=== PATIENT | female | born 1955 | race African-American/Black ===

== ENCOUNTER 2018-06-29 17:05 | Emergency (ER) | payer OTHER ==
[2018-06-29 17:41] LABS: #Eosinphils 0.1 thou/uL (0.0-0.7); #Lymphocytes 1.3 thou/uL (1.20-3.40); #Monocytes 0.5 thou/uL (0.11-0.59); #Neutrophils 5.1 thou/uL (1.40-6.50); %Basophils 0.7 % (0.0-1.0); %Eosinophils 1.6 % (0.0-10.0); %Lymphocytes 18.7 % (21.0-51.0); %Monocytes 7.2 % (0.0-10.0); %Neutrophils 71.8 % (42.0-75.0); Hemoglobin 10.3 g/dL (12.0-16.0); Mean Corpuscular HGB CONC 31.5 g/dL (32.0-36.0); Mean Corpuscular Hemoglobin 25.4 pg (27.0-31.0); Mean Corpuscular Volume 80.7 fL (78.0-98.0); Mean Platelet Volume 8.7 fL (7.4-10.4); Platelet Count 255 thou/uL (130-400); RBC Distribution Width 13.6 % (11.5-14.5); Red Blood Cell (RBC) Count 4.07 mill/uL (4.20-5.40); White Blood Cell (WBC) Count 7.1 thou/uL (4.8-10.8)
[2018-06-29] MEDS ORDERED: Loperamide HCl 2 MG CAP ONE (18:00)
[2018-06-29 18:06] LABS: ALT (SGPT) 10 U/L (8-55); AST (SGOT) 14 U/L (5-34); Albumin 3.6 g/dL (3.5-5.0); Alkaline Phosphatase 84 U/L (40-150); Anion Gap 12 mmol/L (10-20); BUN (Urea Nitrogen) 12 mg/dL (9.8-20.1); Bilirubin, Total 0.5 mg/dL (0.2-1.2); Calc. Creatinine Clearance 0 mL/min (70-130); Carbon Dioxide 23 mmol/L (22-29); Chloride 106 mmol/L (98-107); Estimated GFR-MDRD 89; Globulin 3.6 g/dL (2.4-3.5); Glucose 109 mg/dL (70-105); Magnesium 1.7 mg/dL (1.6-2.6); Protein, Total 7.2 g/dL (6.0-8.3); Sodium 137 mmol/L (136-145)
[2018-06-29 18:08] LABS: Bilirubin Negative (Negative); Blood, Urine Large (Negative); Clarity CLEAR (Clear); Glucose, Urine (Dipstick) Negative (Negative); Leukocyte Moderate (Negative); Nitrite Positive (Negative); Protein, Urine (Dipstick) Negative (Neg-Trace); Specific Gravity, Urine 1.009 (1.002-1.036); Urobilinogen 0.2 mg/dL (0.2-1.0)
[2018-06-29 18:10] LABS: Bacteria/HPF 1+ HPF (None Seen); Hyaline Casts/LPF 0-3 HYALINE CAST LPF (0-3 Hyaline); RBC/HPF 21-50 HPF (0-3); Squamous Epithelial 0-3 HPF (0-3)
== END 2018-06-29 19:31 | disposition home or self-care (01) ==
LOC: ERS 17:05
DX: N39.0 Urinary tract infection, site not specified (principal); R19.7 Diarrhea, unspecified; I10 Essential (primary) hypertension; Z86.73 Personal history of transient ischemic attack (TIA), and cerebral infarction without residual deficits; Z79.899 Other long term (current) drug therapy
CPT/HCPCS: 36415; 80053; 81003; 81015; 83735; 84484; 85025; 93005; 96360

== ENCOUNTER 2018-07-26 08:34 | Day surgery (SDC) | payer MEDICARE, MEDICAID ==
[2018-07-25 16:30] VITALS: BMI 40.6
[2018-07-26 09:07] LABS: #Basophils 0.1 thou/uL (0.0-0.2); #Eosinphils 0.3 thou/uL (0.0-0.7); #Lymphocytes 2.7 thou/uL (1.20-3.40); #Monocytes 0.4 thou/uL (0.11-0.59); #Neutrophils 4.4 thou/uL (1.40-6.50); %Basophils 1.1 % (0.0-1.0); %Lymphocytes 34.1 % (21.0-51.0); %Monocytes 4.8 % (0.0-10.0); Hemoglobin 10.1 g/dL (12.0-16.0); Mean Corpuscular HGB CONC 29.9 g/dL (32.0-36.0); Mean Corpuscular Hemoglobin 24.1 pg (27.0-31.0); Mean Corpuscular Volume 80.4 fL (78.0-98.0); Mean Platelet Volume 8.5 fL (7.4-10.4); Platelet Count 277 thou/uL (130-400); RBC Distribution Width 13.9 % (11.5-14.5); Red Blood Cell (RBC) Count 4.21 mill/uL (4.20-5.40); White Blood Cell (WBC) Count 7.9 thou/uL (4.8-10.8)
[2018-07-26 09:22] LABS: Hypochromia SLIGHT = 6-15 cells (100X) (0-5/hpf); MDiff Complete? YES; Platelet Morphology Comment Appears Adequate; Polychromasia SLIGHT = 2-3 cells (100X) (0-2/hpf)
[2018-07-26 09:25] LABS: Anion Gap 11 mmol/L (10-20); BUN (Urea Nitrogen) 14 mg/dL (9.8-20.1); Calc. Creatinine Clearance 124 mL/min (70-130); Calcium 9.6 mg/dL (7.8-10.44); Carbon Dioxide 25 mmol/L (22-29); Chloride 107 mmol/L (98-107); Estimated GFR-MDRD 80; Glucose 100 mg/dL (70-105); Potassium 3.9 mmol/L (3.5-5.1); Sodium 139 mmol/L (136-145)
[2018-07-26] MEDS ORDERED: Bacitracin Zinc Ointment 30 gm TUBE ONE (09:37)
[2018-07-26] MEDS ORDERED: Bupivacaine/Epinephrine 0.25% 30 ML VIAL ONE (09:37)
[2018-07-26] MEDS ORDERED: Fentanyl 100 MCG/2 ML VIAL ONE ×2 (09:39→11:44)
[2018-07-26] MEDS ORDERED: Lidocaine 2% Jelly 5 ML TUBE ONE (09:39)
[2018-07-26] MEDS ORDERED: Ondansetron PF 4 MG/2 ML Vial ONE (15:34)
[2018-07-26] MEDS ORDERED: Rocuronium Bromide 10 MG/ML (10ML VIAL) ONE (15:34)
[2018-07-26] MEDS ORDERED: Lidocaine 1% PF 5 ML VIAL ONE (15:34)
[2018-07-26] MEDS ORDERED: PROPOFOL 200 MG/20 ML VIAL ONE (15:34)
[2018-07-26] MEDS ORDERED: ePHEDrine 50 MG/ML VIAL ONE (15:34)
[2018-07-26] MEDS ORDERED: Glycopyrrolate 0.2 MG/ML 5 ML SYRINGE ONE (15:34)
--- NOTE | 2018-07-26 16:21 | PDOC.OP ---
Operative Note - Operative Note Operative Note: PROCEDURE: Excision of left posterior shoulder lipoma SURGEON: Linda Scherer M.D. DATE: 07/26/2018 PREOPERATIVE DIAGNOSIS: Left posterior shoulder lipoma POSTOPERATIVE DIAGNOSIS: Left posterior shoulder lipoma HISTORY: Patient with large left posterior shoulder lipoma which has been slowly growing over many years time. She has decided to have this removed for symptomatic and diagnostic purposes. PROCEDURE IN DETAIL: After informed consent was obtained and appropriate preoperative antibiotics administered patient was taken to the operating on she was placed in supine position and general anesthesia was administered she was then placed in the right lateral decubitus position with appropriate padding and support of the extremities and the left shoulder and back were prepped and draped in standard sterile fashion. Local anesthesia was infused circumferentially for a field block and a transverse incision was made over the lipoma in the long axis. Dissection was carried down to the well-defined lobulated lipoma which was dissected free circumferentially. This extended from the dermis to the underlying muscle and measured 10 x 13 x 4 cm in size. The mass was marked for orientation and the wound irrigated and hemostasis verified. A LETICIA drain was placed and brought out inferolaterally to the wound and secured to the skin. The subcutaneous tissues were reapproximated with 3-0 Monocryl suture and the skin was closed with a running 4-0 subcuticular Monocryl suture. Dermabond was placed to the incision and the LETICIA site was dressed with gauze and Tegaderm. The patient was moved to the supine position and extubated. Estimated blood loss was minimal. There were no complications. Specimen is left posterior shoulder lipoma.
--- NOTE | 2018-07-28 14:07 | EKG ---
Test Reason : PREOP Blood Pressure : / mmHG Vent. Rate : 055 BPM Atrial Rate : 055 BPM P-R Int : 174 ms QRS Dur : 080 ms QT Int : 432 ms P-R-T Axes : 058 040 046 degrees QTc Int : 413 ms Sinus bradycardia Otherwise normal ECG When compared with ECG of 29-JUN-2018 17:22, T wave amplitude has increased in Anterior leads Confirmed by NORMAN HERRING ([id number]) on 07/28/2018 2:07:05 PM Referred By: [email or web address] Confirmed By:NORMAN HERRING
== END 2018-07-26 13:18 | disposition home or self-care (01) ==
LOC: SDC 08:34
PROVIDERS: ATTEND Surgery
PROC: 0KB60ZZ Excision of Left Shoulder Muscle, Open Approach (ICD-10-PCS; principal; 2018-07-26)
DX: D17.79 Benign lipomatous neoplasm of other sites (principal); I10 Essential (primary) hypertension; Z86.73 Personal history of transient ischemic attack (TIA), and cerebral infarction without residual deficits; Z79.82 Long term (current) use of aspirin; Z79.899 Other long term (current) drug therapy
CPT/HCPCS: 36415; 80048; 85025; 88304; 93005; 93010; J0131; J0690; J2001; J2405; J2704; J3010; J3490

== ENCOUNTER 2021-02-03 09:50 | Outpatient (CLI) | payer MEDICARE, MEDICAID | END 2021-02-03 09:51 | disposition home or self-care (01) | PROVIDERS: ATTEND Nurse Practitioner Family | DX: R26.81 Unsteadiness on feet (principal); E66.01 Morbid (severe) obesity due to excess calories; I69.30 Unspecified sequelae of cerebral infarction; Z74.09 Other reduced mobility ==

== ENCOUNTER 2022-11-06 17:44 | Emergency (ER) | payer OTHER, MEDICAID ==
[2022-11-06] MEDS ORDERED: Sodium Bicarb 50 MEQ/50 ML VIAL ONE (18:14)
[2022-11-06] MEDS ORDERED: Calcium Chloride 1 GM/10 ML Abboject SYRINGE ONE (18:14)
[2022-11-06 19:18] LABS: #Basophils 0.1 thou/uL (0.0-0.2); #Eosinphils 0.3 thou/uL (0.0-0.7); #Monocytes 0.4 thou/uL (0.11-0.59); #Neutrophils 4.5 thou/uL (1.40-6.50); %Basophils 1.4 % (0.0-1.0); %Eosinophils 4.4 % (0.0-10.0); %Lymphocytes 30.7 % (21.0-51.0); %Monocytes 5.5 % (0.0-10.0); %Neutrophils 57.9 % (42.0-75.0); Hematocrit 29.7 % (36.0-47.0); Hemoglobin 9.3 g/dL (12.0-16.0); Mean Corpuscular HGB CONC 31.3 g/dL (32.0-36.0); Mean Corpuscular Hemoglobin 25.7 pg (27.0-31.0); Mean Platelet Volume 10.3 fL (7.4-10.4); Platelet Count 231 10x3/uL (130-400); RBC Distribution Width 14.6 % (11.5-14.5); Red Blood Cell (RBC) Count 3.62 mill/uL (4.20-5.40); White Blood Cell (WBC) Count 7.8 10x3/uL (4.8-10.8)
[2022-11-06 19:42] LABS: ALT (SGPT) 9 U/L (8-55); AST (SGOT) 13 U/L (5-34); Albumin 3.5 g/dL (3.4-4.8); Alkaline Phosphatase 96 U/L (40-110); Anion Gap 12 mmol/L (10-20); BUN (Urea Nitrogen) 10 mg/dL (9.8-20.1); Bilirubin, Total 0.3 mg/dL (0.2-1.2); Calc. Creatinine Clearance 0 mL/min (70-130); Calcium 8.8 mg/dL (7.8-10.44); Carbon Dioxide 25 mmol/L (23-31); Chloride 108 mmol/L (98-107); Estimated GFR 72; Globulin 3.7 g/dL (2.4-3.5); Glucose 98 mg/dL (80-115); Potassium 4.6 mmol/L (3.5-5.1); Protein, Total 7.2 g/dL (5.8-8.1); Sodium 140 mmol/L (136-145)
== END 2022-11-06 21:26 | disposition home or self-care (01) ==
LOC: ERS 17:44
DX: R60.0 Localized edema (principal); I10 Essential (primary) hypertension; Z87.891 Personal history of nicotine dependence
CPT/HCPCS: 36415; 80053; 85025; 85379